=== PATIENT | female | born 1990 | race Caucasian/White ===

== ENCOUNTER 2017-02-06 11:21 | Emergency (ER) | payer BC ==
[~2017-02-06] VITALS: Ht 165.1 cm; Wt 95.4 kg
[~2017-02-06 11:21] MED LIST: TAMIFLU75 MG PO
[2017-02-06] MEDS ORDERED: MACROBID100 MG PO (11:36)
[2017-02-06] MEDS ORDERED: VENTOLIN HFA18 GM IH (11:37)
[2017-02-06 12:01] LABS: ADD MIUA? NO; BILIRUBIN NEGATIVE; BLOOD NEGATIVE; COLOR YELLOW ((YELLOW)); GLUCOSE (STRIP) NEGATIVE; KETONES NEGATIVE; LEUKOCYTES NEGATIVE; NITRITE NEGATIVE; PROTEIN (STRIP) NEGATIVE; SPECIFIC GRAVITY 1.012 (1.000-1.030); UROBILINOGEN 0.2 MG/DL (0.2-1.0)
[2017-02-06 12:05] LABS: INTERNAL CONTROL VALID? YES
[2017-02-06 12:57] LABS: HEMATOCRIT 38.5 % (36.0-46.0); MCH 28.2 PG (29.0-34.0); MCV 85.4 FL (83-99); MEAN PLAT.VOLUME 10.3 uM^3 (9.5-12.4); PLATELET COUNT 236 K/uL (156-360); RBC DIS.WIDTH-CV 12.4 % (11.8-14.6); RBC DIS.WIDTH-SD 38.3 % (39-53); RED BLOOD COUNT 4.51 M/uL (3.80-5.20); WHITE BLOOD COUNT 5.9 K/uL (4.1-10.2)
[2017-02-06 13:16] LABS: CHLORIDE 110 mEq/L (99-109); POTASSIUM 4.5 mEq/L (3.7-5.4); SODIUM 142 mEq/L (136-147)
[2017-02-06 13:18] LABS: GLUCOSE 86 mg/dL (70-99)
[2017-02-06 13:19] LABS: ANION GAP 7 MEQ/L (2-14)
[2017-02-06 13:20] LABS: TOTAL BILIRUBIN 0.2 mg/dL (0.0-1.0)
[2017-02-06 13:22] LABS: ALKALINE PHOSPHATASE 78 IU/L (3-129); GFR ESTIMATE (CALCULATED) > 59 mL/min/
[2017-02-06 13:23] LABS: UREA NITROGEN (BUN) 11 mg/dL (9-23)
[2017-02-06] MEDS ORDERED: FLEXERIL5 MG PO (15:05)
[2017-02-06 15:14] VITALS: BP 107/67
== END 2017-02-06 15:17 | disposition home or self-care (01) ==
LOC: EME 11:21
PROVIDERS: Nurse Practitioner Family
DX: M54.9 Dorsalgia, unspecified (principal); N39.0 Urinary tract infection, site not specified; J45.909 Unspecified asthma, uncomplicated; Z90.49 Acquired absence of other specified parts of digestive tract
CPT/HCPCS: 74176; 80053; 81003; 84703; 85027; 99281; 99284

== ENCOUNTER 2017-12-25 13:53 | Emergency (ER) | payer BC ==
[~2017-12-25] VITALS: Ht 165.1 cm; Wt 90.2 kg
[~2017-12-25 13:53] MED LIST changes: +FLEXERIL5 MG PO; +MACROBID100 MG PO; +VENTOLIN HFA18 GM IH
[2017-12-25 14:31] LABS: BASOPHIL (%) 0.3 % (0-1); EOSINOPHIL (%) 0.5 % (0-5); EOSINOPHIL COUNT 0.1 K/uL (0-0.3); HEMATOCRIT 41.3 % (36.0-46.0); HEMOGLOBIN 14.1 G/DL (11.9-15.5); IMMATURE GRANULOCYTE (%) 0.3 % (0.0-0.7); LYMPHOCYTE (%) 10.1 % (15-42); LYMPHOCYTE COUNT 1.2 K/uL (1.0-2.8); MCHC 34.1 G/DL (30.0-36.0); MCV 84.8 FL (83-99); MONOCYTE COUNT 0.6 K/uL (0-0.8); NEUTROPHIL (%) 83.8 % (45-76); NEUTROPHIL COUNT 9.7 K/uL (1.8-6.4); PLATELET COUNT 235 K/uL (156-360); RBC DIS.WIDTH-CV 12.4 % (11.8-14.6); RBC DIS.WIDTH-SD 38.1 % (39-53); RED BLOOD COUNT 4.87 M/uL (3.80-5.20); WHITE BLOOD COUNT 11.6 K/uL (4.1-10.2)
[2017-12-25 14:39] LABS: CHLORIDE 107 mEq/L (99-109); POTASSIUM 4.2 mEq/L (3.7-5.4); SODIUM 137 mEq/L (136-147)
[2017-12-25 14:41] LABS: GLUCOSE 106 mg/dL (70-99)
[2017-12-25 14:45] LABS: CREATININE 0.9 mg/dL (0.6-1.3); GFR ESTIMATE (CALCULATED) > 59 mL/min/; UREA NITROGEN (BUN) 7 mg/dL (9-23)
[2017-12-25 17:10] LABS: APPEARANCE CLEAR ((CLEAR)); BILIRUBIN NEGATIVE; BLOOD LARGE; COLOR YELLOW ((YELLOW)); GLUCOSE (STRIP) NEGATIVE; KETONES NEGATIVE; LEUKOCYTES NEGATIVE; NITRITE NEGATIVE; PROTEIN (STRIP) 30; SPECIFIC GRAVITY 1.011 (1.000-1.030); UROBILINOGEN 0.2 MG/DL (0.2-1.0)
[2017-12-25 17:19] LABS: BACTERIA RARE /HPF; EPITHELIAL CELLS RARE /HPF; MUCUS TRACE /LPF; RED BLOOD CELLS TNTC /HPF (0-5); UCUL ADDED? YES; WHITE BLOOD CELLS 0-5 /HPF (0-5)
[2017-12-25] MEDS ORDERED: ZITHROMAX Z-PA250 MG PO (18:33)
[2017-12-25] MEDS ORDERED: MEDROL DOSEPAK4 MG PO (18:33)
[2017-12-25] MEDS ORDERED: PROAIR HFA8.5 GM IH (18:34)
[2017-12-25 18:41] VITALS: BP 129/73
== END 2017-12-25 18:42 | disposition home or self-care (01) ==
LOC: EME 13:53
PROVIDERS: Physician Assistant
DX: J45.909 Unspecified asthma, uncomplicated (principal); J20.9 Acute bronchitis, unspecified; F17.200 Nicotine dependence, unspecified, uncomplicated; Z88.2 Allergy status to sulfonamides; Z91.040 Latex allergy status
CPT/HCPCS: 71046; 71275; 80048; 81003; 83605; 85025; 85379; 87086; 94640; 99281; 99284; J7030